=== PATIENT | female | born 1995 | race Caucasian/White ===

== ENCOUNTER 2016-11-12 13:17 | Emergency (ER) | payer SELFPAY ==
[~2016-11-12] VITALS: Ht 170.2 cm; Wt 90.9 kg
[~2016-11-12 13:17] MED LIST: MOTRIN 600600 MG/TAB PO; NO HOME MEDICATIONS; NORCO 325 MG-51 TAB PO; PERCOCET 325 MG1 TA2 PO; PRENATAL1 TA1 PO; ZOFRAN 4MG T4 MG/TAB PO
[2016-11-12 13:24] VITALS: BP 121/74; TEMP 98.2
[2016-11-12 15:47] VITALS: PULSE 81
== END 2016-11-12 15:48 | disposition home or self-care (01) ==
LOC: COL.ER 13:17
DX: T43.611A Poisoning by caffeine, accidental (unintentional), initial encounter (principal); R00.2 Palpitations; F17.210 Nicotine dependence, cigarettes, uncomplicated
CPT/HCPCS: J2060; J7030

== ENCOUNTER 2017-11-01 14:17 | Emergency (ER) | payer SELFPAY ==
[~2017-11-01] VITALS: Ht 170.2 cm; Wt 91.8 kg
[2017-11-01 14:22] VITALS: BP 121/71; PULSE 98; TEMP 98.5
[2017-11-01] MEDS ORDERED: TESSALON P100 MG/CAP PO (15:52)
== END 2017-11-01 16:18 | disposition home or self-care (01) ==
LOC: COL.ER 14:17
DX: J06.9 Acute upper respiratory infection, unspecified (principal); F17.210 Nicotine dependence, cigarettes, uncomplicated

== ENCOUNTER 2018-01-13 06:46 | Emergency (ER) | payer SELFPAY ==
[~2018-01-13] VITALS: Ht 170.2 cm; Wt 95.5 kg
[~2018-01-13 06:46] MED LIST changes: +TESSALON P100 MG/CAP PO
[2018-01-13 06:49] VITALS: BP 119/80; PULSE 87; TEMP 97.8
[2018-01-13] MEDS ORDERED: AMOXICILLIN 50500 MG PO (07:11)
== END 2018-01-13 07:23 | disposition home or self-care (01) ==
LOC: COL.ER 06:46
DX: K02.9 Dental caries, unspecified (principal); F17.210 Nicotine dependence, cigarettes, uncomplicated; Z90.89 Acquired absence of other organs

== ENCOUNTER 2018-02-23 15:55 | Emergency (ER) | payer SELFPAY ==
[~2018-02-23] VITALS: Ht 170.2 cm; Wt 90.9 kg
[~2018-02-23 15:55] MED LIST changes: +AMOXICILLIN 50500 MG PO
[2018-02-23 16:23] LABS: BASO % 0.4 % (0.0-2.0); EOS # 0.1 (0.0-0.7); EOS % 1.3 % (0-4.0); GRAN # 7.8 (1.4-6.5); GRAN % 72.7 % (42.2-75.2); HEMATOCRIT 43.5 % (37.0-47.0); HEMOGLOBIN 14.5 g/dl (12.5-16.0); LYMPH # 2.1 (1.2-3.4); LYMPH % 19.1 % (20.0-51.0); MEAN CELL VOLUME 84 fl (80.0-100.0); MEAN CORPUSCULAR HEMOGLOBIN 28 pg (27.0-31.0); MEAN CORPUSCULAR HGB CONC 33 g/dl (33.0-37.0); MEAN PLATELET VOLUME 9.9 fl (7.4-10.4); MONO # 0.7 (0.1-0.6); MONO % 6.2 % (1.7-9.3); PLATELET COUNT 295 K/mm3 (130-400); REDCELL DISTRIBUTION WIDTH-CV 13.9 % (11.5-14.5)
[2018-02-23 16:36] LABS: ALANINE AMINOTRANSFERASE 21 U/L (9-52); ALBUMIN 4.3 gm/dL (3.5-5.0); ALKALINE PHOSPHATASE 73 U/L (50-136); ANION GAP 14 mmol/L (7-16); AST,SGOT 16 U/L (15-37); BILIRUBIN,TOTAL 0.4 mg/dL (0.0-1.0); BLOOD UREA NITROGEN 16 mg/dL (7-17); CALCIUM 9.7 mg/dL (8.4-10.2); CARBON DIOXIDE 22 mmol/L (22-30); CHLORIDE 106 mmol/L (98-107); CREATININE, serum 0.66 mg/dL (0.52-1.25); GLUCOSE 120 mg/dL (74-106); POTASSIUM 3.7 mmol/L (3.4-5.0); SODIUM 142 mmol/L (137-145)
[2018-02-23 16:49] LABS: TROPONIN-I < 0.012 ng/mL (0.000-0.034)
[2018-02-23 16:54] LABS: COLLECTION METHOD CLEAN CATCH
[2018-02-23 17:03] LABS: BUDDING YEAST Present /hpf; MUCOUS Present /lpf; PH 8 (5-8); URINE APPEARANCE Hazy; URINE BACTERIA None Seen /hpf; URINE BILIRUBIN Negative (NEGATIVE); URINE BLOOD Negative (NEGATIVE); URINE COLOR Yellow; URINE GLUCOSE Negative (NEGATIVE); URINE KETONE Negative (NEGATIVE); URINE LEUKOCYTE ESTERASE Negative (NEGATIVE); URINE NITRATE Negative (NEGATIVE); URINE PROTEIN(semi-quant) 1+ (NEGATIVE); URINE RBC 0-2 /hpf; URINE UROBILINOGEN Negative (NEGATIVE)
[2018-02-23 17:33] VITALS: BP 111/73; PULSE 74; TEMP 96.5
== END 2018-02-23 17:31 | disposition home or self-care (01) ==
LOC: COL.ER 15:55
PROVIDERS: Family Medicine
DX: K21.9 Gastro-esophageal reflux disease without esophagitis (principal); F17.210 Nicotine dependence, cigarettes, uncomplicated
CPT/HCPCS: C9113

== ENCOUNTER 2018-03-12 01:53 | Emergency (ER) | payer SELFPAY ==
[~2018-03-12] VITALS: Ht 170.2 cm; Wt 93.2 kg
[2018-03-12 02:00] VITALS: TEMP 98.1
[2018-03-12 02:22] LABS: BASO % 0.3 % (0.0-2.0); EOS # 0.2 (0.0-0.7); EOS % 1.6 % (0-4.0); GRAN # 8.4 (1.4-6.5); GRAN % 69.7 % (42.2-75.2); HEMATOCRIT 42.1 % (37.0-47.0); LYMPH # 2.4 (1.2-3.4); LYMPH % 20.3 % (20.0-51.0); MEAN CELL VOLUME 85 fl (80.0-100.0); MEAN CORPUSCULAR HEMOGLOBIN 28 pg (27.0-31.0); MEAN CORPUSCULAR HGB CONC 33 g/dl (33.0-37.0); MEAN PLATELET VOLUME 9.7 fl (7.4-10.4); MONO # 0.9 (0.1-0.6); MONO % 7.8 % (1.7-9.3); PLATELET COUNT 294 K/mm3 (130-400); RED BLOOD COUNT 4.98 M/mm3 (4.10-5.30); REDCELL DISTRIBUTION WIDTH-CV 13.8 % (11.5-14.5)
[2018-03-12 02:32] LABS: ALANINE AMINOTRANSFERASE 24 U/L (9-52); ALBUMIN 4.2 gm/dL (3.5-5.0); ALKALINE PHOSPHATASE 73 U/L (50-136); ANION GAP 15 mmol/L (7-16); AST,SGOT 17 U/L (15-37); BILIRUBIN,TOTAL 0.4 mg/dL (0.0-1.0); BLOOD UREA NITROGEN 10 mg/dL (7-17); CALCIUM 9.5 mg/dL (8.4-10.2); CARBON DIOXIDE 24 mmol/L (22-30); CHLORIDE 103 mmol/L (98-107); CREATININE, serum 0.63 mg/dL (0.52-1.25); GLUCOSE 120 mg/dL (74-106); POTASSIUM 3.6 mmol/L (3.4-5.0); SODIUM 141 mmol/L (137-145); TOTAL PROTEIN 8.1 gm/dL (6.4-8.2)
[2018-03-12 02:34] LABS: ALCOHOL(ethanol),MEDICAL < 10 mg/dL; SALICYLATE < 1.0 mg/dL
[2018-03-12 02:35] LABS: ACETAMINOPHEN 114 ug/mL (10-30)
[2018-03-12 02:36] LABS: COLLECTION METHOD CLEAN CATCH
[2018-03-12 02:43] LABS: MUCOUS Present /lpf; PH 6 (5-8); URINE APPEARANCE Hazy; URINE BACTERIA Rare /hpf; URINE BILIRUBIN Negative (NEGATIVE); URINE BLOOD Negative (NEGATIVE); URINE COLOR Straw; URINE GLUCOSE Negative (NEGATIVE); URINE KETONE Negative (NEGATIVE); URINE LEUKOCYTE ESTERASE 1+ (NEGATIVE); URINE NITRATE Negative (NEGATIVE); URINE PROTEIN(semi-quant) Negative (NEGATIVE); URINE UROBILINOGEN Negative (NEGATIVE)
[2018-03-12 02:49] LABS: TRICYCLIC ANTIDEPRESS URINE NEGATIVE
[2018-03-12 09:09] VITALS: BP 114/72; PULSE 78
[2018-03-13] MEDS ORDERED: CEPHALEXIN500 M1 PO (14:59)
== END 2018-03-12 09:15 | disposition home or self-care (01) ==
LOC: COL.ER 01:53
PROVIDERS: Nurse Practitioner
DX: T39.1X2A Poisoning by 4-Aminophenol derivatives, intentional self-harm, initial encounter (principal)

== ENCOUNTER 2018-05-03 21:57 | Emergency (ER) | payer SELFPAY ==
[~2018-05-03] VITALS: Ht 170.2 cm; Wt 91.7 kg
[~2018-05-03 21:57] MED LIST changes: +CEPHALEXIN500 M1 PO
[2018-05-03 22:00] VITALS: BP 113/61; TEMP 98.2
[2018-05-03 22:54] LABS: COLLECTION METHOD CLEAN CATCH
[2018-05-03 22:59] LABS: MUCOUS Present /lpf; PH 7 (5-8); SQUAMOUS EPITHELIAL 0-2 /hpf; URINE APPEARANCE Clear; URINE BACTERIA None Seen /hpf; URINE BILIRUBIN Negative (NEGATIVE); URINE BLOOD Negative (NEGATIVE); URINE COLOR Yellow; URINE GLUCOSE Negative (NEGATIVE); URINE KETONE Negative (NEGATIVE); URINE LEUKOCYTE ESTERASE Negative (NEGATIVE); URINE NITRATE Negative (NEGATIVE); URINE PROTEIN(semi-quant) Negative (NEGATIVE); URINE RBC 0-2 /hpf
[2018-05-03 23:18] LABS: BASO % 0.2 % (0.0-2.0); EOS # 0.2 (0.0-0.7); EOS % 1.6 % (0-4.0); GRAN # 6.2 (1.4-6.5); GRAN % 63.7 % (42.2-75.2); HEMATOCRIT 39.9 % (37.0-47.0); HEMOGLOBIN 13.5 g/dl (12.5-16.0); LYMPH # 2.6 (1.2-3.4); LYMPH % 26.3 % (20.0-51.0); MEAN CELL VOLUME 83 fl (80.0-100.0); MEAN CORPUSCULAR HEMOGLOBIN 28 pg (27.0-31.0); MEAN CORPUSCULAR HGB CONC 34 g/dl (33.0-37.0); MEAN PLATELET VOLUME 9.6 fl (7.4-10.4); MONO # 0.8 (0.1-0.6); PLATELET COUNT 286 K/mm3 (130-400); REDCELL DISTRIBUTION WIDTH-CV 13.7 % (11.5-14.5)
[2018-05-03 23:29] LABS: ALBUMIN 4.3 gm/dL (3.5-5.0); BILIRUBIN,TOTAL 0.1 mg/dL (0.0-1.0); CALCIUM 9.3 mg/dL (8.4-10.2); CREATININE, serum 0.59 mg/dL (0.52-1.25); POTASSIUM 3.6 mmol/L (3.4-5.0); TOTAL PROTEIN 7.2 gm/dL (6.4-8.2)
[2018-05-04 00:02] VITALS: PULSE 76
== END 2018-05-04 | disposition home or self-care (01) ==
LOC: COL.ER 21:57
PROVIDERS: Physician Assistant
DX: O21.9 Vomiting of pregnancy, unspecified (principal); Z90.89 Acquired absence of other organs; Z3A.00 Weeks of gestation of pregnancy not specified

== ENCOUNTER 2018-05-12 11:54 | Emergency (ER) | payer SELFPAY ==
[2018-05-12 11:57] VITALS: TEMP 97.5
[2018-05-12 13:05] LABS: BASO % 0.3 % (0.0-2.0); EOS # 0.1 (0.0-0.7); EOS % 0.6 % (0-4.0); GRAN # 7.4 (1.4-6.5); GRAN % 73.9 % (42.2-75.2); HEMATOCRIT 39.3 % (37.0-47.0); HEMOGLOBIN 13.3 g/dl (12.5-16.0); LYMPH # 1.6 (1.2-3.4); LYMPH % 16.5 % (20.0-51.0); MEAN CELL VOLUME 82 fl (80.0-100.0); MEAN CORPUSCULAR HEMOGLOBIN 28 pg (27.0-31.0); MEAN CORPUSCULAR HGB CONC 34 g/dl (33.0-37.0); MEAN PLATELET VOLUME 9.8 fl (7.4-10.4); MONO # 0.8 (0.1-0.6); MONO % 8.4 % (1.7-9.3); PLATELET COUNT 286 K/mm3 (130-400); RED BLOOD COUNT 4.77 M/mm3 (4.10-5.30)
[2018-05-12 13:13] LABS: ALBUMIN 4.1 gm/dL (3.5-5.0); BILIRUBIN,TOTAL 0.5 mg/dL (0.0-1.0); CREATININE, serum 0.57 mg/dL (0.52-1.25); POTASSIUM 3.2 mmol/L (3.4-5.0); TOTAL PROTEIN 7.3 gm/dL (6.4-8.2)
[2018-05-12 13:58] LABS: COLLECTION METHOD CLEAN CATCH
[2018-05-12 14:12] VITALS: BP 101/63; PULSE 79
[2018-05-12 14:29] LABS: AMORPHOUS CRYSTAL Present /uL; MUCOUS Present /lpf; PH 6 (5-8); SQUAMOUS EPITHELIAL 0-2 /hpf; URINE APPEARANCE Turbid; URINE BACTERIA None Seen /hpf; URINE BILIRUBIN Negative (NEGATIVE); URINE BLOOD Negative (NEGATIVE); URINE COLOR Amber; URINE GLUCOSE Negative (NEGATIVE); URINE KETONE 2+ (NEGATIVE); URINE LEUKOCYTE ESTERASE Negative (NEGATIVE); URINE NITRATE Negative (NEGATIVE); URINE PROTEIN(semi-quant) 1+ (NEGATIVE); URINE UROBILINOGEN >=4.0 mg/dL (NEGATIVE)
[2018-05-12] MEDS ORDERED: PHENERGAN 25 TA25 MG PO (14:46)
== END 2018-05-12 15:03 | disposition home or self-care (01) ==
LOC: COL.ER 11:54
PROVIDERS: Emergency Medicine
DX: O21.9 Vomiting of pregnancy, unspecified (principal); O26.891 Other specified pregnancy related conditions, first trimester; K92.0 Hematemesis; Z3A.01 Less than 8 weeks gestation of pregnancy; Z87.891 Personal history of nicotine dependence
CPT/HCPCS: J2550; J7030

== ENCOUNTER → 2018-11-18 | Outpatient (CLI) | payer MEDICAID ==
[~2018-11-18] MED LIST changes: +PHENERGAN 25 TA25 MG PO; +PRILOSEC 20MG20 MG PO
== END ==
LOC: LDRO 17:15
DX: O62.9 Abnormality of forces of labor, unspecified (principal); Z3A.00 Weeks of gestation of pregnancy not specified
CPT/HCPCS: J0702

== ENCOUNTER → 2018-11-19 | Outpatient (CLI) | payer MEDICAID | LOC: LDRO 12:55 | DX: Z34.90 Encounter for supervision of normal pregnancy, unspecified, unspecified trimester (principal); Z3A.00 Weeks of gestation of pregnancy not specified | CPT/HCPCS: J0702 ==

== ENCOUNTER 2018-12-20 07:13 | Inpatient (IN) | payer MEDICAID ==
[~2018-12-20] VITALS: Ht 170.2 cm; Wt 93.6 kg
[2018-12-20] VITALS (31 sets, daily range): BP systolic 100–131; BP diastolic 53–84; PULSE 58–98; TEMP 97.8–98.9
[2018-12-20] MEDS ORDERED: CONCEPT DHA1 CAP PO (07:36)
--- NOTE | 2018-12-20 07:45 | NUR ---
0718- Pt arrives on unit ambulatory with boyfriend for scheduled inducation. Oriented to room, Pt into bathroom, changes into gown and voids. 07- Pt into bed, EFM and TOCO applied and tracing. Plan of care/induction explained, questions answered. Assessment completed, consents explained and signed. Call light within reach.
[2018-12-20 09:01] LABS: BASO % 0.3 % (0.0-2.0); EOS # 0.1 (0.0-0.7); GRAN # 9.1 (1.4-6.5); GRAN % 74.4 % (42.2-75.2); HEMATOCRIT 34.8 % (37.0-47.0); HEMOGLOBIN 11.6 g/dl (12.5-16.0); LYMPH # 1.9 (1.2-3.4); LYMPH % 15.5 % (20.0-51.0); MEAN CELL VOLUME 80 fl (80.0-100.0); MEAN CORPUSCULAR HEMOGLOBIN 27 pg (27.0-31.0); MEAN CORPUSCULAR HGB CONC 33 g/dl (33.0-37.0); MEAN PLATELET VOLUME 12.4 fl (7.4-10.4); MONO % 8.1 % (1.7-9.3); PLATELET COUNT 218 K/mm3 (130-400); RED BLOOD COUNT 4.33 M/mm3 (4.10-5.30); REDCELL DISTRIBUTION WIDTH-CV 12.9 % (11.5-14.5)
--- NOTE | 2018-12-20 10:19 | NUR ---
1019- Pt requests to sit on side of bed for comfort. FHR tracing.
--- NOTE | 2018-12-20 11:30 | NUR ---
1113- O2 sat monitor on and tracing materal HR. EFM tracing materal HR intermittently due to maternal position during epidural placement. 1125- Pt assisted to semi-fowlers with WL, EFM and TOCO adjusted and tracing.
--- NOTE | 2018-12-20 12:15 | NUR ---
1210- SVE by this RN, complete. Pt begins pushing with UCs, this RN remains at bedside.
--- NOTE | 2018-12-20 12:47 | NUR ---
1244- Dr Oconnell at bedside. Pt and room prepped for delivery. [facility] RN called to bedside. Pt continus pushing with UCs. 1247- of viable female . placed on mother's abd where dried and stimulated, tended to by nursery RN. Pitocin off. Cord clamped and cut, cord blood obtained. 1251- Spontaneous delivery of placenta, Pitocin restarted at 333ml/hr. Superficial laceration repaired by . Pericare completed, ice back to perineum, clean chux under Pt. Pt assisted to high-fowlers, baby remains [id number] with mother.
--- NOTE | 2018-12-20 15:30 | NUR ---
1530- Pt able to raise legs off bed. IV to INT, Epidural catheter removed. Fundus check reveiled a large amount of small clots and bleeding. Fundus deviated to the left. Fundus massaged to firm, bleeding improved. Pt assisted to standing on side of bed, Pt feels dizzy, returns to bed. Straight cath by this RN, 900mls of fluid noted. Fundus massaged, firm, D2, small amount of freeflow noted. Pericare completed. Pad and underwear on. 1545- Pt taken to room via wheelchair, transfers independently without complaints of dizziness. Will monitor bleeding.
--- NOTE | 2018-12-20 17:15 | NUR ---
171- Fundus check, firm, deviated to the left, Pt denies feeling like she needs to void. Bleeding WNL. VSS. Pt ambulates to bathroom independently with RN standby. Denies dizziness. Voids 850mls without difficulty. Pericare explained. Bleeding precautions given, Pt verbalizes understanding. Pt ambulates back to bed well.
--- NOTE | 2018-12-20 18:56 | NUR ---
BEDSIDE REPORT RECEIVED FROM OFF GOING RNPHILIP. CARE TAKEN OVER BY THIS RN. PT UP TO THE BATHROOM, 200 ML VOID NOTED. PHILIP AND THIS RN CHECK BLEEDING AND FUNDUS D/T HX OF BLEEDING. FUNDUS FIRM AND DOWN 2 FROM U. BED IN LOW AND LOCKED POSITION. AND FOB IN ROOM. CALL LIGHT AND BELONGINGS IN REACH. PT REPORTS NO FURTHER NEEDS AT THIS TIME.
[2018-12-21 01:26] VITALS: BP 123/60; PULSE 68; TEMP 98
[2018-12-21 03:45] VITALS: BP 106/53; PULSE 63; TEMP 97.7
[2018-12-21 07:15] VITALS: BP 104/73; PULSE 84; TEMP 97.8
[2018-12-21 07:21] LABS: HEMOGLOBIN 10.8 g/dl (12.5-16.0)
[2018-12-21 07:24] LABS: HEMATOCRIT 32.5 % (37.0-47.0)
--- NOTE | 2018-12-21 11:08 | NUR ---
Initial visit; Parents thanked [employer] for offering congratulations and God's blessings for the of their daughter. [employer] Grade Teacher thanked them for choosing our hospital.
== END 2018-12-21 15:40 | disposition home or self-care (01) | DRG 807 ==
LOC: OB 07:13 → LDR 07:13 → OB 15:45
PROVIDERS: ADMIT Obstetrics & Gynecology
PROC: 10E0XZZ Delivery of Products of Conception, External Approach (ICD-10-PCS; principal; 2018-12-20)
PROC: 0HQ9XZZ Repair Perineum Skin, External Approach (ICD-10-PCS; 2018-12-20)
PROC: 3E033VJ Introduction of Other Hormone into Peripheral Vein, Percutaneous Approach (ICD-10-PCS; 2018-12-20)
PROC: 10907ZC Drainage of Amniotic Fluid, Therapeutic from Products of Conception, Via Natural or Artificial Opening (ICD-10-PCS; 2018-12-20)
DX: O70.0 First degree perineal laceration during delivery (principal); Z37.0 Single live birth; Z3A.39 39 weeks gestation of pregnancy; O69.81X0 Labor and delivery complicated by cord around neck, without compression, not applicable or unspecified
CPT/HCPCS: J2590; J7120

== ENCOUNTER 2020-02-07 02:47 | Emergency (ER) | payer MEDICAID ==
[~2020-02-07] VITALS: Ht 170.2 cm; Wt 97.7 kg
[~2020-02-07 02:47] MED LIST changes: +CONCEPT DHA1 CAP PO
[2020-02-07 02:50] VITALS: BP 125/79; TEMP 98.5
[2020-02-07] MEDS ORDERED: AMOXICILLIN 8751 TAB PO (03:00)
[2020-02-07 03:17] VITALS: PULSE 95
== END 2020-02-07 03:11 | disposition home or self-care (01) ==
LOC: COL.ER 02:47
DX: K02.9 Dental caries, unspecified (principal)